=== PATIENT | female | born 1965 | race African-American/Black ===

== ENCOUNTER 2016-08-04 14:57 | Inpatient (IN) | payer MEDICARE, MEDICAID ==
[~2016-08-04] VITALS: Ht 167.6 cm; Wt 129.9 kg
[2016-08-04] MEDS ORDERED: OPTIRAY 350 100 ML VIAL HMH IV ONE ×2 (14:58)
[2016-08-04] MEDS ORDERED: LABETALOL 100 MG/20 ML VIAL ONE (16:16)
[2016-08-04] MEDS ORDERED: DILAUDID 1 MG/ML AMP ONE ×2 (16:17→21:12)
[2016-08-04] MEDS ORDERED: ONDANSETRON 4 MG VIAL ONE (16:17)
[2016-08-04] MEDS ORDERED: SODIUM CHLORIDE 0.9% 1,000 ML ONE (16:17)
[2016-08-04] MEDS ORDERED: KETOROLAC 30 MG/ML VIAL ONE (19:32)
[2016-08-04] MEDS ORDERED: Furosemide 40 MG/4 ML VIAL ONE (21:11)
[2016-08-04] MEDS ORDERED: NITROGLYCERIN 2% OINT 1 INCH PKT TOPICAL ONE (21:11)
[2016-08-04 23:09] VITALS: BMI 45.7
[2016-08-04] MEDS ORDERED: TEMAZEPAM 15 MG CAP PO PRN (23:15)
[2016-08-04] MEDS ORDERED: LORAZEPAM 0.5 MG TAB PO PRN (23:15)
[2016-08-04] MEDS ORDERED: SODIUM CHLORIDE 0.9% FLUSH BAG 500 ML IV PRN (23:15)
[2016-08-04] MEDS ORDERED: NITROGLYCERIN 50 MG/250 ML IV PRN (23:15)
[2016-08-04] MEDS ORDERED: ASPIRIN 81 MG CHEW TAB PO ONE (23:15)
[2016-08-04] MEDS ORDERED: TRAMADOL 50 MG TAB PO PRN (23:15)
[2016-08-04] MEDS ORDERED: SALINE FLUSH 10 ML FLUSH PRN (23:15)
[2016-08-04] MEDS ORDERED: NITROGLYCERIN SL 0.4 MG TAB SL PRN (23:15)
[2016-08-04] MEDS ORDERED: ACETAMINOPHEN 325 MG TAB PO PRN (23:15)
[2016-08-05] VITALS (13 sets, daily range): BP systolic 102–170; RESP 16–18; TEMP 97.7–98.8; Ht 167.6 cm; Wt 129.9 kg
[2016-08-05] MEDS: ONDANSETRON 4 MG VIAL IV PRN ×3 (05:52→20:30)
[2016-08-05] MEDS: MORPHINE 2 MG/ML SYR IV PRN ×4 (05:53→20:28)
[2016-08-05] MEDS ORDERED: MISSING DOSE XX ONE ×3 (08:15→18:20)
[2016-08-05] MEDS ORDERED: Furosemide 40 MG/4 ML VIAL IV ONE ×2 (09:00→11:20)
[2016-08-05] MEDS: ASPIRIN EC 81 MG TAB PO SCH (10:14)
[2016-08-05] MEDS: SALINE FLUSH 10 ML FLUSH SCH ×2 (10:14→20:26)
[2016-08-05] MEDS ORDERED: DICLOFENAC 75 MG TAB PO SCH (11:15)
[2016-08-05] MEDS: GABAPENTIN 300 MG CAP PO SCH ×2 (11:15→20:28)
[2016-08-05] MEDS ORDERED: HCTZ 12.5 MG CAP PO SCH (11:15)
[2016-08-05] MEDS: ENOXAPARIN 40 MG/0.4 ML SYR SUBQ SCH ×2 (11:15→20:29)
[2016-08-05] MEDS ORDERED: KETOROLAC 30 MG/ML VIAL IM ONE (11:15)
[2016-08-05] MEDS: LOTREL 5/10 CAP PO SCH (14:00)
[2016-08-05] MEDS ORDERED: KETOROLAC 30 MG/ML VIAL IV ONE (18:15)
[2016-08-05] MEDS: LEVOFLOXACIN 500 MG/100 ML 100 ML IV SCH (19:24)
[2016-08-05] MEDS ORDERED: PANTOPRAZOLE 40 MG TAB PO ONE ×2 (22:40→23:05)
[2016-08-06] VITALS (10 sets, daily range): BP systolic 102–136; RESP 18–20; TEMP 97.4–99.2
[2016-08-06] MEDS: PANTOPRAZOLE 40 MG TAB PO SCH (06:40)
[2016-08-06] MEDS ORDERED: Furosemide 40 MG/4 ML VIAL IV ONE (07:00)
[2016-08-06] MEDS: ENOXAPARIN 40 MG/0.4 ML SYR SUBQ SCH ×2 (08:35→20:14)
[2016-08-06] MEDS: ONDANSETRON 4 MG VIAL IV PRN ×3 (08:41→20:14)
[2016-08-06] MEDS: LEVOFLOXACIN 500 MG/100 ML 100 ML IV SCH (08:41)
[2016-08-06] MEDS: MORPHINE 2 MG/ML SYR IV PRN ×3 (08:41→20:16)
[2016-08-06] MEDS: GABAPENTIN 300 MG CAP PO SCH ×2 (08:42→20:12)
[2016-08-06] MEDS: ASPIRIN EC 81 MG TAB PO SCH (08:42)
[2016-08-06] MEDS: LOTREL 5/10 CAP PO SCH (08:42)
[2016-08-06] MEDS: SALINE FLUSH 10 ML FLUSH SCH ×2 (08:43→20:12)
[2016-08-06] MEDS: Furosemide 20 MG TAB PO SCH (13:17)
[2016-08-06] MEDS: NEB-BROVANA 15 MCG/2 ML INH SCH ×2 (16:13→19:27)
[2016-08-07] VITALS (8 sets, daily range): BP systolic 106–146; RESP 18–20; TEMP 97.5–98.6
[2016-08-07] MEDS: MORPHINE 2 MG/ML SYR IV PRN ×5 (01:24→22:46)
[2016-08-07] MEDS: Hydrocodone/APAP 10/325 MG TAB PO PRN ×2 (04:06→21:23)
[2016-08-07] MEDS: PANTOPRAZOLE 40 MG TAB PO SCH (06:20)
[2016-08-07] MEDS: NEB-BROVANA 15 MCG/2 ML INH SCH ×2 (07:39→20:17)
[2016-08-07] MEDS: ASPIRIN EC 81 MG TAB PO SCH (08:29)
[2016-08-07] MEDS: SALINE FLUSH 10 ML FLUSH SCH ×2 (08:29→19:57)
[2016-08-07] MEDS: Furosemide 20 MG TAB PO SCH (08:29)
[2016-08-07] MEDS: GABAPENTIN 300 MG CAP PO SCH ×2 (08:30→19:57)
[2016-08-07] MEDS ORDERED: LEVOFLOXACIN 500 MG TAB PO SCH (09:00)
[2016-08-07] MEDS: ENOXAPARIN 40 MG/0.4 ML SYR SUBQ SCH ×2 (09:00→19:57)
[2016-08-07] MEDS ORDERED: MISSING DOSE XX ONE (09:30)
[2016-08-07] MEDS ORDERED: Furosemide 100 MG/10 ML VIAL IV ONE (10:35)
[2016-08-07] MEDS: DOCUSATE SOD 100 MG CAP PO PRN (11:02)
[2016-08-07] MEDS: METHYLPRED SOD SUCC 40 MG VIAL IV SCH ×3 (11:22→22:46)
[2016-08-08] VITALS (7 sets, daily range): BP systolic 128–153; RESP 16–20; TEMP 97.6–98.8
[2016-08-08] MEDS: MORPHINE 2 MG/ML SYR IV PRN ×3 (04:38→14:37)
[2016-08-08] MEDS: PANTOPRAZOLE 40 MG TAB PO SCH (06:31)
[2016-08-08] MEDS: Hydrocodone/APAP 10/325 MG TAB PO PRN ×3 (06:44→20:27)
[2016-08-08] MEDS: NEB-BROVANA 15 MCG/2 ML INH SCH ×2 (07:22→19:51)
[2016-08-08] MEDS: Furosemide 20 MG TAB PO SCH (09:00)
[2016-08-08] MEDS ORDERED: Furosemide 100 MG/10 ML VIAL IV ONE (09:02)
[2016-08-08] MEDS: LEVOFLOXACIN 750 MG TAB PO SCH (09:04)
[2016-08-08] MEDS: ASPIRIN EC 81 MG TAB PO SCH (09:04)
[2016-08-08] MEDS: GABAPENTIN 300 MG CAP PO SCH ×2 (09:04→20:16)
[2016-08-08] MEDS: METHYLPRED SOD SUCC 40 MG VIAL IV SCH ×3 (09:04→22:50)
[2016-08-08] MEDS: SALINE FLUSH 10 ML FLUSH SCH ×2 (09:04→20:17)
[2016-08-08] MEDS: ENOXAPARIN 40 MG/0.4 ML SYR SUBQ SCH ×2 (09:05→20:16)
[2016-08-08] MEDS ORDERED: NAPROXEN SOD 220 MG PO PRN (09:35)
[2016-08-08] MEDS: SPIRONOLACTONE 25 MG TAB PO SCH (09:48)
[2016-08-08] MEDS: Furosemide 100 MG/10 ML VIAL IV SCH (16:39)
[2016-08-08] MEDS ORDERED: Carvedilol 6.25 MG TAB PO SCH (16:54)
[2016-08-08] MEDS: Carvedilol 6.25 MG TAB PO SCH (16:57)
[2016-08-09] MEDS: Hydrocodone/APAP 10/325 MG TAB PO PRN ×5 (01:11→23:27)
[2016-08-09] MEDS ORDERED: LACTULOSE SOLN 20GM/30ML UDC PO PRN (02:40)
[2016-08-09 02:45] VITALS: BP_SYST 128; RESP 20; TEMP 97.6
[2016-08-09] MEDS: PANTOPRAZOLE 40 MG TAB PO SCH (05:29)
[2016-08-09] MEDS: NEB-BROVANA 15 MCG/2 ML INH SCH ×2 (07:49→19:38)
[2016-08-09 08:26] VITALS: BP_SYST 130; RESP 20; TEMP 97.7
[2016-08-09] MEDS: SALINE FLUSH 10 ML FLUSH SCH ×2 (09:00→20:55)
[2016-08-09] MEDS: METHYLPRED SOD SUCC 40 MG VIAL IV SCH ×3 (09:00→23:23)
[2016-08-09] MEDS: ASPIRIN EC 81 MG TAB PO SCH (09:00)
[2016-08-09] MEDS: Carvedilol 6.25 MG TAB PO SCH ×2 (09:16→19:53)
[2016-08-09] MEDS: SPIRONOLACTONE 25 MG TAB PO SCH (09:16)
[2016-08-09] MEDS: LEVOFLOXACIN 750 MG TAB PO SCH (09:16)
[2016-08-09] MEDS: GABAPENTIN 300 MG CAP PO SCH ×2 (09:16→19:53)
[2016-08-09] MEDS: Furosemide 100 MG/10 ML VIAL IV SCH ×2 (09:17→16:30)
[2016-08-09] MEDS: ENOXAPARIN 40 MG/0.4 ML SYR SUBQ SCH ×2 (09:17→19:54)
[2016-08-09] MEDS: DOCUSATE SOD 100 MG CAP PO PRN (09:27)
[2016-08-09] MEDS: amLODIPine 2.5 MG TAB PO SCH ×2 (10:34→19:53)
[2016-08-09 11:25] VITALS: BP_SYST 138; RESP 20; TEMP 97.8
[2016-08-09 15:59] VITALS: BP_SYST 128; RESP 20; TEMP 97.9
[2016-08-09 20:21] VITALS: BP_SYST 138; RESP 20; TEMP 98
[2016-08-09 23:19] VITALS: BP_SYST 130; RESP 20; TEMP 97.8
[2016-08-10] VITALS (7 sets, daily range): BP systolic 123–153; RESP 16–18; TEMP 97.4–98.2
[2016-08-10] MEDS: MORPHINE 2 MG/ML SYR IV PRN (01:55)
[2016-08-10] MEDS ORDERED: MISSING DOSE XX ONE (03:10)
[2016-08-10] MEDS: Hydrocodone/APAP 10/325 MG TAB PO PRN ×4 (03:52→17:26)
[2016-08-10] MEDS: PANTOPRAZOLE 40 MG TAB PO SCH (06:36)
[2016-08-10] MEDS: NEB-BROVANA 15 MCG/2 ML INH SCH (07:45)
[2016-08-10] MEDS: METHYLPRED SOD SUCC 40 MG VIAL IV SCH (08:30)
[2016-08-10] MEDS: Furosemide 100 MG/10 ML VIAL IV SCH (08:30)
[2016-08-10] MEDS: SALINE FLUSH 10 ML FLUSH SCH (08:30)
[2016-08-10] MEDS: ENOXAPARIN 40 MG/0.4 ML SYR SUBQ SCH (08:30)
[2016-08-10] MEDS: SPIRONOLACTONE 25 MG TAB PO SCH (08:31)
[2016-08-10] MEDS: Carvedilol 6.25 MG TAB PO SCH (08:31)
[2016-08-10] MEDS: ASPIRIN EC 81 MG TAB PO SCH (08:31)
[2016-08-10] MEDS: amLODIPine 2.5 MG TAB PO SCH (08:31)
[2016-08-10] MEDS: LEVOFLOXACIN 750 MG TAB PO SCH (08:31)
[2016-08-10] MEDS: GABAPENTIN 300 MG CAP PO SCH (08:31)
[2016-08-10] MEDS ORDERED: NEB-BUDESONIDE 0.5 MG INH SCH (19:00)
== END 2016-08-10 18:15 | disposition home or self-care (01) | DRG 292 ==
LOC: ENRESERVTM → ENRESERV → ENRESERVDT → ER 14:57 → ENPENDDIS 20:26 → EMR 20:26 → 4THW 22:46 → 5THE 08-10 00:54
PROVIDERS: ADMIT Specialist; ATTEND Specialist
DX: I11.0 Hypertensive heart disease with heart failure (principal); Z68.42 Body mass index [BMI] 45.0-49.9, adult; M32.9 Systemic lupus erythematosus, unspecified; I27.2 Other secondary pulmonary hypertension; E66.01 Morbid (severe) obesity due to excess calories; I50.33 Acute on chronic diastolic (congestive) heart failure; R07.89 Other chest pain; K21.9 Gastro-esophageal reflux disease without esophagitis; J45.909 Unspecified asthma, uncomplicated; F17.210 Nicotine dependence, cigarettes, uncomplicated; R09.02 Hypoxemia; I36.1 Nonrheumatic tricuspid (valve) insufficiency
CPT/HCPCS: 36415; 36600; 71020; 74177; 80048; 80053; 80061; 82550; 82553; 83735; 83880; 84484; 85025; 93005; 93306; 94640; 94799; 96361; 96374; 96375; 96376; 99223; 99233